=== PATIENT | female | born 1990 | race Caucasian/White ===

== ENCOUNTER 2017-12-14 12:13 | Emergency (ER) | payer MEDICAID ==
[2017-12-14 12:26] VITALS: BMI 29.0
[2017-12-14 12:28] VITALS: BP 130/78; PULSE 98; RESP 17; TEMP 98.7; O2SAT 97
--- NOTE | 2017-12-14 13:08 | C.PDOC ---
History Of Present Illness 26yo female, with history of bipolar disorder, comes to ER stating she was sitting on her knees on her bed and was wearing a dress made from slippery material and she slid backwards and fell, hitting her head on the wooden floor, all occurring 1.5 hours prior to arrival. She denies any loss of consciousness, blurry vision, dizziness, mild nausea, or vomiting. She also denies any neck pain, numbness, weakness or tingling. She has no other medical complaints. Time Seen by Provider: 12/14/17 12:54 Chief Complaint (Nursing): Headache History Per: Patient History/Exam Limitations: no limitations Onset/Duration Of Symptoms: Hrs Current Symptoms Are (Timing): Still Present Quality: "Pain" Associated Symptoms: denies: Photophobia, Blurred Vision, Nausea, Vomiting, Extremity Weakness Additional History Per: Patient Past Medical History Reviewed: Historical Data, Nursing Documentation, Vital Signs Vital Signs: Last Vital Signs Temp 98.7 F 12/14/17 12:27 Pulse 98 H 12/14/17 12:27 Resp 17 12/14/17 12:27 BP 130/78 12/14/17 12:27 Pulse Ox 97 12/14/17 13:30 - Medical History PMH: Bipolar Disorder, Depression Denies: Chronic Kidney Disease Surgical History: No Surg Hx Family History: States: No Known Family Hx - Social History Hx Alcohol Use: Yes (denies) Hx Substance Use: Yes (denies) - Immunization History Hx Tetanus Toxoid Vaccination: No Hx Influenza Vaccination: No Hx Pneumococcal Vaccination: No Review Of Systems Eyes: Negative for: Vision Change Gastrointestinal: Negative for: Nausea, Vomiting Musculoskeletal: Negative for: Neck Pain Neurological: Positive for: Headache. Negative for: Weakness, Numbness, Dizziness Physical Exam - Physical Exam Appears: Non-toxic, No Acute Distress Skin: Normal Color, Warm, Dry Head: Atraumatic, Normacephalic, No Tenderness, No Swelling, No Abrasion, No Laceration, No Other (la signs; raccoon eyes) Eye(s): bilateral: Normal Inspection, PERRL, EOMI Nose: Normal Oral Mucosa: Moist Neck: Normal ROM, No Midline Cervical Tenderness, No Paracervical Tenderness, No Step Off Deformity, Supple Chest: Symmetrical Cardiovascular: Rhythm Regular Respiratory: Normal Breath Sounds Neurological/Psych: Oriented x3, Normal Cognition, Normal Cranial Nerves, Normal Motor, Normal Sensation ED Course And Treatment O2 Sat by Pulse Oximetry: 97 (RA) Pulse Ox Interpretation: Normal Medical Decision Making Medical Decision Making: -- Zofran 4mg PO given Discussed head injury instructions in detail with patient. Instructed to take medications as prescribed and to follow up with PMD/clinic in 2-3 days. Informed to return to ER immediately if symptoms worsened or new symptoms arise. Disposition Counseled Patient/Family Regarding: Diagnosis, Need For Followup, Rx Given - Disposition Referrals: [facility] [Outside] Disposition: HOME/ ROUTINE Disposition Time: 13:26 Condition: IMPROVED Additional Instructions: Take Tylenol or MOtrin for pain. Take ondansetron if needed for nausea. Please follow up in medical clinic in 1-2 days for re-evaluation, Return to ER for severe headache, vomiting, blurry vision, seizure., lethargy, unusual behavior, unable to be woken easily from sleep or any other concerning symptoms. Please have someone wake you every few hours tonight to make sure you arouse easily. PRESCRIPTION SENT TO [facility] Prescriptions: Ondansetron ODT [Zofran ODT] 4 mg PO TID #12 odt Instructions: Closed Head Injury (DC) Forms: General Discharge Instructions, [facility] (N[place]ali), School Excuse - Clinical Impression Clinical Impression: Closed injury of head - PA / AUTO LOCATOR / Resident Statement MD/DO has reviewed & agrees with the documentation as recorded. - Scribe Statement The provider has reviewed the documentation as recorded by the Scribe (Janneth Villalobos) All medical record entries made by the Scribe were at my direction and personally dictated by me. I have reviewed the chart and agree that the record accurately reflects my personal performance of the history, physical exam, medical decision making, and the department course for this patient. I have also personally directed, reviewed, and agree with the discharge instructions and disposition.
== END 2017-12-14 13:33 | disposition home or self-care (01) ==
LOC: C.ER 12:13
DX: S09.90XA Unspecified injury of head, initial encounter (principal); W06.XXXA Fall from bed, initial encounter; F31.9 Bipolar disorder, unspecified

== ENCOUNTER → 2017-12-21 12:55 | Emergency (ER) | payer MEDICAID ==
[2017-12-21 12:56] VITALS: BMI 29.0
== END | disposition left against medical advice (07) ==
LOC: C.ER 12:55
DX: Z02.89 Encounter for other administrative examinations (principal)